=== PATIENT | male | born 1990 | race African-American/Black ===

== ENCOUNTER 2020-08-10 10:44 | Emergency (ER) | payer MEDICAID ==
[~2020-08-10] VITALS: Ht 188 cm; Wt 81.6 kg
--- NOTE | 2020-08-10 11:05 | NUR ---
SHERYL brought in a patient for weakness. He is moving his arms well but states he feels weak in the legs. [employer] here at bedside speaking to patient.
--- NOTE | 2020-08-10 11:25 | NUR ---
URINE SENT TO LAB COVID SWAB SENT TO LAB
[2020-08-10 11:33] LABS: *BILIRUBIN,URIN NEGATIVE (NEGATIVE); *CLARITY,URINE CLEAR (CLEAR); *COLOR,URINE YELLOW (YELLOW); *KETONES,URINE TRACE (NEGATIVE); *UROBILINOGEN,URINE 0.2 E.U./dl (NORMAL); LEUKOCYTE ESTERASE ,URINE NEGATIVE (NEGATIVE); NITRITE, URINE NEGATIVE (NEGATIVE); PH,URINE 5.5 (5.0-8.0); UGLUCOSE NEGATIVE (NEGATIVE)
[2020-08-10 11:43] LABS: *AMPHETAMINE, URINE POSITIVE (NEGATIVE); *CANNABINOID, URINE POSITIVE (NEGATIVE); *COCCAINE, URINE NEGATIVE (NEGATIVE); *OPIATE, URINE POSITIVE (NEGATIVE); *PHENCYCLIDINE SCREEN,URINE NEGATIVE (NEGATIVE)
[2020-08-10 11:59] LABS: *BLOOD, URINE TRACE (NEGATIVE)
[2020-08-10 12:48] LABS: ALANINE AMINOTRANSFERASE 187 U/L (16-63); ALKALINE PHOSPHATASE 82 U/L (50-136); ASPARTATE AMINOTRANSFERASE 146 U/L (15-37); BILIRUBIN,DIRECT 0.2 mg/dL (0.0-0.2); BILIRUBIN,TOTAL 0.7 mg/dL (0.2-1.0); CARBON DIOXIDE 24 mmol/L (21-32); CHLORIDE 103 mmol/L (98-107); GLUCOSE 85 mg/dL (74-106); POTASSIUM 4.2 mmol/L (3.5-5.1); TOTAL PROTEIN, SERUM 8.2 g/dL (6.4-8.2); UREA NITROGEN, BLOOD 16 mg/dL (7-18)
[2020-08-10 12:52] LABS: ACETAMINOPHEN < 2.0 ug/mL (10-30)
[2020-08-10 12:54] LABS: BASOPHILS % (AUTO) 0.3 % (0.0-2.0); EOSINOPHILS % (AUTO) 0.3 % (0.0-7.0); HEMATOCRIT 49.1 % (36.7-47.1); HEMOGLOBIN 16.1 g/dL (12.5-16.3); LYMPHOCYTES # (AUTO) 0.5 K/uL (20.0-40.0); LYMPHOCYTES % (AUTO) 4.7 % (20.5-51.5); MEAN CORPUSCULAR HEMOGLOBIN 27.7 uug (23.8-33.4); MEAN CORPUSCULAR HGB CONC 33 g/dL (32.5-36.3); MEAN CORPUSCULAR VOLUME 84.5 fL (73.0-96.2); MONOCYTES # (AUTO) 0.6 K/uL (2.0-10.0); MONOCYTES % (AUTO) 5.8 % (0.0-11.0); NEUTROPHILS # (AUTO) 8.9 K/uL (1.8-8.9); NEUTROPHILS % (AUTO) 88.9 % (38.5-71.5); PLATELET COUNT (AUTO) 199 K/uL (152-348); RED BLOOD CELL COUNT(AUTO) 5.81 MIL/uL (4.06-5.63)
[2020-08-10 13:00] LABS: ETHANOL < 3 MG/DL (0-0)
--- NOTE | 2020-08-10 14:09 | NUR ---
Pateint is aware of pending transfer to [facility]. He is sitting up watching TV with no complaints
--- NOTE | 2020-08-10 14:11 | NUR ---
All pertinent info faxed to [facility] as requested by their intake which I called
--- NOTE | 2020-08-10 14:15 | NUR ---
odd jobs day workerElina notified of this case...
[2020-08-10 15:14] LABS: BACTERIA,URINE NONE SEEN /HPF (NONE SEEN); RBC,URINE 0-3 /HPF (0-3); SQUAMOUS EPITHELIAL CELL,UR FEW /HPF (NONE SEEN); WBC,URINE 0-3 /HPF (0-3)
--- NOTE | 2020-08-10 15:16 | NUR ---
ZAY Antoine and Dr Elizalde were at bedside speaking to patient. Patient states he cannot walk because he cant move his legs well. Narda nurse and doctor saw patient stand and walk when he first arrived to ER.
--- NOTE | 2020-08-10 15:16 | NUR ---
[facility] was called for possible admission
--- NOTE | 2020-08-10 15:34 | NUR ---
Compressor Mechanic Consultation: 2:45pm: SW arrived to the ED for social sciences department chair consultation, requested by ED ROGER Matt. SW consulted on the case with ROGER Matt, discussing patient's needs. SW then met with the patient, who was asleep in his assigned ED bed. Patient is a 30 year old -[place] male. Patient was asleep, but arousable when SW called his name. SW attempted to gather personal/medical history from the patient, however patient presented lethargic throughout this interview. SW needed to call patient's name numerous times throughout this interview in order to wake the patient up. SW also needed to repeat questions in order to obtain information. Patient was able to answer some questions, but other times patient's speech was low and incoherent. Patient states that he has been homeless for 1 1/2 years, and lives in different place, however last night he had stayed at a hotel. Patient was not able to identify name and location of the hotel. Patient stated that he came to the hospital because "I have poor motor coordination, and I can't move". Per ED physician's notes, patient was brought to the ED by paramedics after a gradual onset of generalized weakness. Per patient's medical records, patient is positive for amphetamines and marijuana. Patient initially denied substance use, but later stated that he smoked cigarettes and used marijuana yesterday. Patient denied using amphetamines to this SW. Patient stated that he drinks alcohol from times to time. Patient denied hx of mental illness, however admitted to visual hallucinations. Patient's speech was incoherent throughout most of this interview, tone was low, often mumbling. Affect was flat, appearance was unkempt. Patient reports he is unable to ambulate. SW consulted with ROGER Matt and Dr. Elizalde. This SW, ROGER Matt, and Dr. Elizalde met with the patient again, at bedside. Patient continues to state he is unable to ambulate. Assistance was provided by Dr. Elizalde and ROGER Matt to help patient with sitting up and ambulating, however patient continued to state that he cannot move his legs and he cannot ambulate. At this time, patient is not medically cleared for further social sciences department chair interventions. [employer] will remain available, as needed.
--- NOTE | 2020-08-10 17:12 | NUR ---
WAITING FOR [facility] TO CALL BACK WITH DETAILS ABOUT TRANSFER. PATIENT IS SITTING UP DEATING FOOD AND DRINKING WATER
--- NOTE | 2020-08-10 19:05 | NUR ---
Patient to go to [facility]. Waiting for call from there to give report. Hand off report given to Lorenzo DURAN
--- NOTE | 2020-08-10 20:02 | NUR ---
Nancy from [facility] called back with transfer information. Patient accepted to [facility], patient in , Cheri will be the nurse taking report and phone number is [phone]. Dr. Johnson will be the accepting MD.
--- NOTE | 2020-08-10 20:50 | NUR ---
Transport has been set up by SUSAN Strickland 60-90 minutes.
--- NOTE | 2020-08-10 21:10 | NUR ---
Gave SBAR report to HEAVENLY nurse from [facility].
--- NOTE | 2020-08-10 23:08 | NUR ---
Gave SBAR report to [facility] ambulance unit [id number].
== END 2020-08-10 23:15 ==
LOC: ER 10:44
DX: R53.1 Weakness (principal); R41.82 Altered mental status, unspecified; F23 Brief psychotic disorder; F17.290 Nicotine dependence, other tobacco product, uncomplicated; F12.20 Cannabis dependence, uncomplicated; F15.20 Other stimulant dependence, uncomplicated; R44.0 Auditory hallucinations; Z20.828 Contact with and (suspected) exposure to other viral communicable diseases
CPT/HCPCS: 36415; 85025; A4663; G0480